=== PATIENT | female | born 1955 | race Caucasian/White ===

== ENCOUNTER 2016-07-18 16:20 | Emergency (ER) | payer BC ==
[2016-07-18 17:02] VITALS: BP 138/67
--- NOTE | 2016-07-18 17:35 | UC ---
Hand/Wrist HPI - HPI Summary HPI Summary: Pt noticed gradual onset of pain, swelling, and redness on R dorsal hand near base of thumb. Was working in the yard, but reports work was light and did not involve repetitive gripping or carrying heavy things. No known PW or insect bite. Today area has grown through the day and now pt feels crackly sensation under the skin when she moves her thumb. - History Of Current Complaint Chief Complaint: UCUpperExtremity Stated Complaint: INFLAMED BUMP ON HAND Time Seen by Provider: 07/18/16 17:08 Hx Obtained From: Patient ?: No Onset/Duration: Gradual Onset, Lasting Hours Severity Initially: Mild Severity Currently: Moderate Character Of Pain: Dull, Aching Aggravating Factor(s): Movement Alleviating: Nothing Associated Signs And Symptoms: Positive: Swelling, Redness Related History: Dominant Hand Right - Allergies/Home Medications Allergies/Adverse Reactions: Allergies Allergy/AdvReac Type Severity Reaction Status Date / Time Penicillins Allergy Rash Verified 06/01/15 13:57 NUTS Allergy Severe Vomiting Uncoded 06/01/15 13:57 PMH/Surg Hx/FS Hx/Imm Hx Endocrine History Of: Denies: Diabetes, Thyroid Disease - partial thyroidectomy Cardiovascular History Of: Denies: Cardiac Disorders, Hypertension, Pacemaker/ICD Respiratory History Of: Denies: COPD, Asthma GI/ History Of: Denies: Ulcer, Renal Disease Neurological History Of: Reports: Migraine - NONE FOR MANY YEARS Psychological History Of: Reports: Anxiety - ON MEDS Cancer History Of: Denies: Breast Cancer - Surgical History Surgical History: Yes Surgery Procedure, Year, and Place: LT femur, benign tumor removed ortho [id number], partial thyroidectomy. RT WRIST 2007 - Family History Known Family History: Positive: Hypertension - Social History Lives: With Family Alcohol Use: Daily Alcohol Amount: 1 DRINK/DAY Substance Use Type: None Smoking Status (MU): Never Smoked Tobacco Type: Cigarettes Have You Smoked in the Last Year: No Review of Systems Constitutional: Negative Skin: Negative Eyes: Negative ENT: Negative Respiratory: Negative Cardiovascular: Negative Gastrointestinal: Negative Genitourinary: Negative Motor: Negative Neurovascular: Negative Musculoskeletal: Arthralgia, Decreased ROM, Edema Neurological: Negative Psychological: Negative All Other Systems Reviewed And Are Negative: Yes Physical Exam Triage Information Reviewed: Yes Appearance: Well-Appearing, No Pain Distress, Well-Nourished Vital Signs: Initial Vital Signs Temp 97.6 F 07/18/16 16:58 Pulse 81 07/18/16 16:58 Resp 18 07/18/16 16:58 BP 138/67 07/18/16 16:58 Pulse Ox 98 07/18/16 16:58 Vital Signs Reviewed: Yes Eye Exam: Normal Eyes: Positive: Conjunctiva Clear ENT Exam: Normal ENT: Positive: Normal ENT inspection, Hearing grossly normal, Pharynx normal, TMs normal Dental Exam: Normal Neck exam: Normal Neck: Positive: Supple, Nontender, No Lymphadenopathy Respiratory Exam: Normal Respiratory: Positive: Chest non-tender, Lungs clear, Normal breath sounds, No respiratory distress, No accessory muscle use Cardiovascular Exam: Normal Cardiovascular: Positive: RRR, No Murmur Musculoskeletal Exam: Other - non-smooth tendon movement over thumb tendon felt on R radial wrist, full ROM Musculoskeletal: Positive: Strength Intact, ROM Intact Neurological Exam: Normal Psychological Exam: Normal Skin Exam: Other - erythema, swelling over R dorsal hand/wrist approx 8cm x 12cm Hand/Wrist Course/Dx - Differential Dx/Diagnosis Provider Diagnoses: R hand tendinitis. R hand cellulitis Discharge - Discharge Plan Condition: Stable Disposition: HOME Prescriptions: DOXYcycline CAP(*) [DOXYcycline 100MG CAP(*)] 100 mg PO BID #14 cap Naproxen Sodium 500 mg PO BID #20 tab Patient Education Materials: Cellulitis (ED), Tendinitis (ED) Referrals: Rajesh Saez MD [Primary Care Provider] - Additional Instructions: Apply warmth and elevate the hand frequently over the next 24 hours, avoiding painful activities. If you have clear worsening in the next 24 hours, or if you have severe symptoms at any time, please go to the emergency department for re- evaluation. Otherwise, see your primary care provider on or Monday for a recheck.
== END 2016-07-18 17:25 | disposition home or self-care (01) ==
LOC: UCEAST 16:20
DX: M77.9 Enthesopathy, unspecified (principal); L03.113 Cellulitis of right upper limb; Z88.0 Allergy status to penicillin
CPT/HCPCS: 99212; G0463

== ENCOUNTER 2016-10-20 14:17 | Emergency (ER) | payer BC ==
[2016-10-20 16:30] VITALS: BP 119/74
== END 2016-10-20 17:02 | disposition left against medical advice (07) ==
LOC: UCEAST 14:17
DX: T14.8 Other injury of unspecified body region (principal); W57.XXXA Bitten or stung by nonvenomous insect and other nonvenomous arthropods, initial encounter; Y93.9 Activity, unspecified; Y92.9 Unspecified place or not applicable; Z53.21 Procedure and treatment not carried out due to patient leaving prior to being seen by health care provider

== ENCOUNTER 2018-05-24 09:18 | Inpatient (IN) | payer BC ==
--- NOTE | 2018-05-11 17:53 | HP ---
AMENDED REPORT NOW INCLUDES COSIGNER DESIGNATION HISTORY AND PHYSICAL: DATE OF ADMISSION/SURGERY: 05/24/18 DATE OF OFFICE VISIT: 05/11/18 SURGEON: Adeline Vance MD * (DICTATED BY BARBARA COHN) PROCEDURE: Right total hip arthroplasty. CHIEF COMPLAINT: Right hip pain. HISTORY OF PRESENT ILLNESS: Ms. Nguyen is a 62-year-old female with continued complaints of right hip pain and she has failed conservative treatment and elected to proceed with a right total hip arthroplasty. PAST MEDICAL HISTORY: Depression and GERD. PAST SURGICAL HISTORY: 1. Partial thyroidectomy. 2. 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 3. Right wrist surgery. CURRENT MEDICATIONS: 1. Omeprazole 40 mg daily. 2. Zoloft 100 mg daily. 3. Multivitamin. 4. Calcium. 5. Ibuprofen 600 mg as needed. 6. Xanax 0.25 mg 3 times a day as needed. ALLERGIES: PENICILLIN causing a rash and ALL NUTS. FAMILY HISTORY: Blood clots. SOCIAL HISTORY: She is a 62-year-old female. She lives alone. She does not smoke or use drugs. She uses occasional alcohol. REVIEW OF SYSTEMS: A complete 14-point review of systems was reviewed with the patient. It was positive for GERD. She denies history of DVT, PE, hepatitis, HIV, or anesthesia problems. PHYSICAL EXAMINATION GENERAL: She is well developed, well nourished, in no acute distress. VITAL SIGNS: She stands 64 inches tall. She weighs 136 pounds. Her blood pressure is 118/72, her heart rate is 90. HEENT: Normocephalic, atraumatic. NECK: Supple. No palpable lymph nodes. PULMONARY: The lungs are clear to auscultation bilaterally. CARDIO: Regular rate and rhythm. Strong S1, S2. ABDOMEN: Soft, nontender, nondistended. NEUROLOGICAL: She is alert and oriented x3. MUSCULOSKELETAL: Right lower extremity, the skin is intact. There are no open wounds or abrasions. She walks with an antalgic type gait favoring her right hip. She has decreased internal and external rotation of the right hip. She has 2+ dorsalis pedis pulse, intact sensation, and her lower extremity muscle group strengths are intact at 5/5. ASSESSMENT AND PLAN: Ms. Nguyen is a 62-year-old female with end-stage osteoarthritis of the right hip. She has failed conservative treatment and elected to proceed with a right total hip arthroplasty. The surgery is scheduled for 05/24/[address] Vance discussed the risks and the benefits of the surgery at today's visit and all of her questions were answered. She will follow up with Dr. Vance in 2 weeks after the surgery. BARBARA COHN [id number]/[facility] #: [id number] MTDFlorentino
[~2018-05-24 09:18] MED LIST: Buffered Lidocaine 0.9% SYRIN* 5 ML/SYR SYRINGE INTRADERM ONE; Bupivacaine-MPF SPINAL* 7.5 MG/ML - 2ML AMP ONE; Dexamethasone IV* 4 MG/ML 1 ML (4 MG) IV SLOW PU ONE; Famotidine IV* 10 MG/ML 2 ML (20 mg) IV ONE; Lidocaine 2% PF * 5 ML VIAL ONE; Midazolam* 1 MG/ML 2 ML VIAL (2 MG) ONE; Propofol* 10 MG/ML 20 ML BTL ONE; fentaNYL* 50 MCG/ML 2 ML VIAL (100 MCG VIAL) ONE
--- OUTSIDE RECORDS SUMMARY | 2018-05-24 09:22 | XMS REPORT | Continuity of Care Document ---
:1955 External Reference #:[id number] Author Name Jose Antonio Stahl Care Team Providers Name Role Phone Rajesh Saez MD Primary Care Physician Unavailable Payers Type Date Identification Numbers Payment Provider Subscriber Effective: 2013 Policy Number: [id number] [employer] Rosenda Nguyen PayID: [id number] [address] [address] [place] [address] Effective: 2010 Policy Number: [id number] BS Of MORENITA Alaniz Expires: 2013 PayID: [id number] [address] [address] [place] [address] Advance Directives Description No Information Available Problems Date Description Provider Status Onset: 07/31/2015 Localized, primary osteoarthritis of the Adeline Vance M.D. Active pelvic region and thigh Onset: 11/03/2017 Trochanteric bursitis Adeline Vance M.D. Active Onset: 11/03/2017 Localized, primary osteoarthritis Adeline Vance M.D. Active Family History Date Family Member(s) Problem(s) Comments General No Current Problems Social History Type Date Description Comments Sex Unknown Lives With spouse Occupation [employer] Tobacco Use Start: Unknown End: Patient is a former 3 years, 1 ppd quit Unknown smoker as a teen Smoking Status Reviewed: 05/11/18 Patient is a former 3 years, 1 ppd quit smoker as a teen Exercise Type/Frequency Exercises regularly Allergies, Adverse Reactions, Alerts Date Description Reaction Status Severity Comments 03/04/2014 Penicillins Active 03/12/2018 [place] Nuts Active vomiting 03/12/2018 [place] Allergenic Extract Active vomiting 03/12/2018 Cashew Oil Active vomiting 04/04/2018 Tree Nuts Active Medications Medication Date Status Form Strength Qnty SIG Indications Ordering Provider Omeprazole Active Capsules DR 40mg 90caps 1 by Unknown 000 mouth every day Zoloft Active Tablets 100mg 1 by Unknown 000 mouth every day Multi Active Unknown Complete 000 Calcium 600 Active Unknown 000 Ibuprofen Active Tablets 600mg 90tabs 1 by Unknown 000 mouth three times a day as needed Xanax Active Tablets 0.25mg one by Unknown 000 mouth up to three times daily as needed for anxiety Meloxicam Hx Tablets 7.5mg 40tabs take 1 M25.551 Adeline 016 - tab by Rajiv shruthi Shukla 018 qdaily with food Naproxen Hx Tablets 500mg 1 tablet Unknown 000 - with food by mouth 018 twice a day Medications Administered in Office Medication Date Status Form Strength Qnty SIG Indications Ordering Provider Depomedrol Administered Injection Adeline 40MG 018 V[facility] Vance Depomedrol Administered Injection Sameer F 40MG 018 MD Ting Depomedrol Administered Injection Adeline 40MG 018 [facility] Vance Depomedrol Administered Injection Adeline 40MG 016 [facility] Vance Celestone 3 mg Administered Injection Amanda and 3mg 014 Darline harp M.D. Immunizations Description No Information Available Vital Signs Date Vital Result Comment 05/11/2018 9:43am Height 64 inches 5'4" Weight 136.00 lb Heart Rate 90 /min BP Systolic 118 mmHg BP Diastolic 72 mmHg Respiratory Rate 17 /min Body Temperature 98.0 F Pain Level 8 BMI (Body Mass Index) 23.3 kg/m2 04/04/2018 10:02am Height 64 inches 5'4" Heart Rate 60 /min BP Systolic 116 mmHg BP Diastolic 64 mmHg Body Temperature 97.7 F Pain Level 3 03/16/2018 3:51pm Height 64 inches 5'4" Weight 132.00 lb BP Systolic 122 mmHg BP Diastolic 74 mmHg Body Temperature 97.8 F BMI (Body Mass Index) 22.7 kg/m2 03/12/2018 11:14am Height 64 inches 5'4" Heart Rate 80 /min BP Systolic Sitting 120 mmHg BP Diastolic Sitting 70 mmHg Respiratory Rate 16 /min Body Temperature 97.6 F Pain Level 5 03/06/2018 2:04pm Height 64 inches 5'4" Weight 132.00 lb Heart Rate 96 /min Body Temperature 98.2 F Pain Level 9 BMI (Body Mass Index) 22.7 kg/m2 11/03/2017 8:32am Height 64 inches 5'4" Weight 145.00 lb BP Systolic 124 mmHg BP Diastolic 80 mmHg Respiratory Rate 20 /min Pain Level 2 BMI (Body Mass Index) 24.9 kg/m2 07/26/2016 3:39pm Height 64 inches 5'4" Weight 138.00 lb Heart Rate 90 /min BP Systolic 120 mmHg BP Diastolic 94 mmHg Pain Level 3 BMI (Body Mass Index) 23.7 kg/m2 10/14/2015 11:21am Height 64 inches 5'4" Weight 145.00 lb Pain Level 6 occsasional BMI (Body Mass Index) 24.9 kg/m2 07/31/2015 9:47am Height 64 inches 5'4" Weight 145.00 lb Heart Rate 91 /min BP Systolic 115 mmHg BP Diastolic 70 mmHg BMI (Body Mass Index) 24.9 kg/m2 05/07/2014 10:17am Height 64 inches 5'4" Weight 145.00 lb Pain Level 8 BMI (Body Mass Index) 24.9 kg/m2 03/04/2014 10:02am Height 64 inches 5'4" Weight 145.00 lb Heart Rate 78 /min BP Systolic 112 mmHg BP Diastolic 75 mmHg BMI (Body Mass Index) 24.9 kg/m2 Results Description No Information Available Procedures Date Code Description Status 03/16/2018 Inj/Aspir Major JT Or Bursa W/ US Completed 03/06/2018 Inject/Drain Joint/Bursa Major W/O US Completed 11/03/2017 Injection Single Tendon Origin/Insertion Completed 07/31/2015 Inject/Drain Joint/Bursa Major W/O US Completed 05/07/2014 Inject/Drain Joint/Bursa Intermediate W/O US Completed 05/07/2014 Inject/Drain Joint/Bursa Small W/O US Completed 03/04/2014 83516 Rad Exam; Wrist, Comp, Min 3 Views Completed 01/21/2011 81115 Rad Exam; Hip Unilat Completed 01/21/2011 10472 Rad Exam; Pelvis Completed Encounters Type Date Location Provider Dx Diagnosis Office Visit 04/04/2018 Orthopedic Adeline Vance, M16.11 Unilateral primary 9:45a [facility] osteoarthritis, right hip M70.61 Trochanteric bursitis, right hip M25.551 Pain in right hip Office Visit 03/12/2018 Orthopedic Adeline M16.11 Unilateral primary 10:45a [facility] Vance osteoarthritis, right [facility] hip M25.551 Pain in right hip M70.61 Trochanteric bursitis, right hip Office Visit 03/06/2018 1:30p Orthopedic Sameer Rogers M25.561 Pain in right [facility] Ting knee [facility] Office Visit 11/03/2017 8:15a Orthopedic Adeline Vance, M17.11 Unilateral [facility] primary [facility] osteoarthritis, right knee M16.11 Unilateral primary osteoarthritis, right hip M70.61 Trochanteric bursitis, right hip M25.551 Pain in right hip M25.461 Effusion, right knee M25.561 Pain in right knee Office Visit 07/26/2016 3:15p Orthopedic Irvin Cavazos M79.641 Pain in right [facility] PRIETO hand Office Visit 10/14/2015 10:45a Orthopedic Adeline Vance M25.551 Pain in right [facility] hip M16.11 Unilateral primary osteoarthritis, right hip M70.61 Trochanteric bursitis, right hip Office Visit 07/31/2015 9:30a [facility] Vance M25.551 Pain in right [facility] Shukla hip M16.11 Unilateral primary osteoarthritis, right hip M70.61 Trochanteric bursitis, right hip Office 05/07/2014 Orthopedic Amanda 715.13 Osteoarthrosis Visit 9:30a [facility] Localized Prim [facility] Forearm Office 04/09/2014 Orthopedic Amanda 715.13 Osteoarthrosis Visit 8:45a [facility] Localized Prim [facility] Forearm Office 03/04/2014 Orthopedic Amanda 719.43 Pain Joint Forearm Visit 9:00a [facility] Office 01/21/2011 Orthopedic Trevon Hernandez, 728.89 Muscle Disorders Visit 3:15p [facility] Other [facility] Office 01/28/2010 Orthopedic Trevon Hernandez, 726.32 Epicondylitis Visit 8:15a [facility] Lateral [facility] Plan of Treatment Future Appointment(s):06/06/2018 10:30 am - Adeline Vance M.D. at [facility]05/24/2018 11:30 am - AURA Valles at [facility]05/24/2018 11:30 am - BARBARA Gutierrez at [facility]05/24/2018 11:30 am - Aedline Vance M.D. at [facility]05/11/2018 - Adeline Vance M.D.M16.11 Unilateral primary osteoarthritis, right hipFollow up:Follow up: 2 weeks after epxyzysV75.551 Pain in right hip
[2018-05-24] MEDS ORDERED: Dexamethasone IV* 4 MG/ML 1 ML (4 MG) ONE (09:44)
[2018-05-24] MEDS ORDERED: Clindamycin 900 MG/D5W BAG(*) 900 MG/50 ML BAG IVPB ONE (09:44)
[2018-05-24] MEDS ORDERED: Famotidine IV* 10 MG/ML 2 ML (20 mg) ONE (09:44)
[2018-05-24] MEDS ORDERED: EPHEDrine (Pressors)* 50 MG/ML VIAL ONE (12:19)
[2018-05-24] MEDS ORDERED: oxyCODONE TAB* 5 MG TAB PO PRN (12:21)
[2018-05-24] MEDS ORDERED: Acetaminophen IV 1GM/100ML * 1,000 MG/100 ML VIAL IVPB ONE (12:21)
[2018-05-24] MEDS ORDERED: Naloxone* 0.4 MG/ML 1 ML VIAL IV PRN (12:21)
[2018-05-24] MEDS ORDERED: Ondansetron INJ* 2 MG/ML VIAL IV PRN (12:21)
[2018-05-24] MEDS ORDERED: Ketorolac INJ* 30 MG/ML 1 ML VIAL IV PRN (12:21)
[2018-05-24] MEDS ORDERED: Propofol* 10 MG/ML 20 ML BTL ONE (12:44)
[2018-05-24] MEDS ORDERED: Ondansetron TAB* 4 MG PO PRN (13:42)
[2018-05-24] MEDS ORDERED: Bisacodyl SUPP* 10 MG SUPP PR PRN (13:42)
[2018-05-24] MEDS ORDERED: Morphine VIAL* 4 MG/ML VIAL (1 ml vial) IV PRN (13:42)
[2018-05-24] MEDS ORDERED: diPHENhydraMINE IV* 50 MG/ML 1 ml VIAL (BENADRYL) IV PRN (13:42)
[2018-05-24] MEDS ORDERED: traMADol TAB* 50 MG PO PRN (13:42)
[2018-05-24] MEDS ORDERED: Polyethylene Glycol 3350* 17 GM PACKET PO PRN (13:42)
[2018-05-24] MEDS ORDERED: Cyclobenzaprine TAB* 10 MG PO PRN (13:42)
[2018-05-24] MEDS ORDERED: oxyCODONE/Acetamin 5/325 MG* TAB PO PRN (13:42)
[2018-05-24] MEDS ORDERED: Magnesium Hydroxide LIQ* 30 ML UDC PO PRN (13:42)
[2018-05-24] MEDS ORDERED: ALPRAZolam TAB* 0.25 MG PO PRN (13:47)
[2018-05-24] MEDS ORDERED: fentaNYL* 50 MCG/ML 2 ML VIAL (100 MCG VIAL) ONE ×2 (14:36→15:38)
[2018-05-24] MEDS ORDERED: oxyCODONE SR TAB(*) 10 MG TAB.SR ONE (14:36)
[2018-05-24] MEDS ORDERED: Ondansetron INJ* 2 MG/ML VIAL ONE (14:37)
[2018-05-24] MEDS: fentaNYL* 50 MCG/ML 2 ML VIAL (100 MCG VIAL) IV PRN ×3 (14:40→15:40)
[2018-05-24] MEDS ORDERED: Morphine VIAL* 4 MG/ML VIAL (1 ml vial) ONE ×2 (14:45→15:16)
[2018-05-24] MEDS: Morphine VIAL* 4 MG/ML VIAL (1 ml vial) IV PRN ×2 (15:17→15:27)
[2018-05-24] MEDS ORDERED: Ketorolac INJ* 30 MG/ML 1 ML VIAL ONE (15:24)
[2018-05-24] MEDS ORDERED: Warfarin TAB(*) 6 MG PO ONE (17:00)
[2018-05-24] MEDS: oxyCODONE/Acetamin 5/325 MG* TAB PO PRN (19:47)
[2018-05-24] MEDS: Docusate CAP* 100 MG PO SCH (19:48)
[2018-05-24] MEDS: Magnesium Hydroxide LIQ* 30 ML UDC PO SCH (19:49)
[2018-05-24] MEDS: Clindamycin 600 MG IVPREMIX(* 600 MG/50 ML SDV IV SCH (19:52)
[2018-05-24] MEDS: Acetaminophen TAB* 325 MG PO SCH (22:17)
[2018-05-24] MEDS: oxyCODONE TAB* 5 MG TAB PO PRN (22:18)
[2018-05-25] MEDS: oxyCODONE/Acetamin 5/325 MG* TAB PO PRN ×5 (00:07→22:48)
[2018-05-25] MEDS: Clindamycin 600 MG IVPREMIX(* 600 MG/50 ML SDV IV SCH ×2 (04:05→11:37)
[2018-05-25 04:54] LABS: Hematocrit 29 % (35-47); Hemoglobin 9.7 g/dl (12.0-16.0); Mean Platelet Volume 7.2 fL (7.4-10.4); Platelet Count 231 10^3/ul (150-450)
[2018-05-25 05:05] LABS: INR 0.9 (0.77-1.02)
[2018-05-25 05:10] LABS: EGFR Non-African American 93.7 (>60)
[2018-05-25] MEDS: Acetaminophen TAB* 325 MG PO SCH ×3 (06:10→22:32)
[2018-05-25] MEDS: oxyCODONE TAB* 5 MG TAB PO PRN ×2 (07:28→18:41)
[2018-05-25] MEDS: Docusate CAP* 100 MG PO SCH ×2 (07:28→22:48)
[2018-05-25] MEDS: Omeprazole CAP* 20 MG PO SCH (07:28)
[2018-05-25] MEDS: Magnesium Hydroxide LIQ* 30 ML UDC PO SCH ×2 (07:28→22:48)
[2018-05-25] MEDS: Sertraline* 100 MG TAB PO SCH (07:28)
--- NOTE | 2018-05-25 09:46 | PN ---
Progress Note - Progress Note Date of Service: 05/25/18 SOAP: Subjective: []Patient seen OOB in chair. Feels she is doing well. BP's running a little soft but she has been asymptomatic. Objective: [] Vital Signs Temp 97.2 F 05/25/18 07:12 Pulse 82 05/25/18 07:12 Resp 16 05/25/18 07:36 BP 90/60 05/25/18 07:14 Pulse Ox 100 05/25/18 07:12 Intake & Output 05/24/18 05/25/18 05/25/18 18:59 06:59 18:59 Intake Total 1500 1120 Output Total 1550 Balance 1500 -430 Weight 135 lb 3.2 oz Intake: IV Fluids 1500 1000 ABX - CLINDAMYCIN 50 LR 950 Lactated Ringers 1500 Oral 120 Output: Lopez 1550 Laboratory Results - last 24 hr 05/25/18 05/25/18 05/25/18 04:32 04:32 04:32 Hgb 9.7 L Hct 29 L Plt Count 231 MPV 7.2 L INR (Anticoag Therapy) 0.90 Sodium 137 Potassium 3.5 Chloride 104 Carbon Dioxide 31 Anion Gap 2 BUN 13 Creatinine 0.64 Est GFR ( Amer) 113.4 Est GFR (Non-Af Amer) 93.7 BUN/Creatinine Ratio 20.3 H Glucose 138 H Calcium 7.8 L Right hip dressing is dry and intact calf soft and non tender +DF/PF right ankle 2+ pedal pulse sensation intact Assessment: []s/p right total hip arthroplasty POD #1 Plan: []PT/OT WBAT RLE Coumadin discontinued, on Eliquis BID Discharge home tomorrow Follow up 10-14 days as scheduled with Dr. Vance
[2018-05-25] MEDS ORDERED: Enoxaparin(*) 40 MG/0.4 ML SYR SUBCUT SCH (12:00)
--- NOTE | 2018-05-25 15:28 | OP ---
OPERATIVE REPORT: DATE OF OPERATION: 05/24/18. DATE OF : 53. ATTENDING SURGEON: Adeline Vance MD. TALENT ACQUISITION COORDINATOR: BARBARA Ozuna. Ms. Perkins did help throughout the procedure with preparation of the leg, wound retraction, manipul ation of the hip, and wound closure. ANESTHESIOLOGIST: Dr. Chester. ANESTHESIA: Spinal. PRE-OP DIAGNOSIS: Severe endstage degenerative osteoarthritis of the right hip joint. POST-OP DIAGNOSIS: Severe endstage degenerative osteoarthritis of the right hip joint, developmental hip dysplasia. OPERATIVE PROCEDURE: Right total hip arthroplasty. COMPLICATIONS: None. ESTIMATED BLOOD LOSS: 200 mL. SPECIMEN: Femoral head and acetabular reamings sent to Pathology. HARDWARE USED: This is uncemented [employer] total hip arthroplasty hardware. For the cup, a Tritanium hemispherical cluster hole shell 50D, a single 20-mm cancellous bone screw was used. For the liner, an MDM cementless liner 38D. For the stem, an Accolade II, size 3 with a 127-degree neck. For the head, a 22.2 +0 LFIT V40 femoral head, and for the liner insert an MDM X3 insert, 22.2/38D. BRIEF HISTORY/INDICATIONS: Ms. Nguyen is a 62-year-old female with years of increasingly severe right hip pain. She failed conservative treatment with antiinflammatories, pain medication, intraarticular injections, and physical therapy. Radiographs showed advanced arthritis and developmental dysplasia . Due to continued pain and decreased quality of life, she elected to undergo right total hip arthro plasty. Informed consent was obtained from the patient. She understood the risks of surgery include d, but were not limited to, bleeding, infection, damage to nearby structures, continued pain, need fo r further surgery, intraoperative fracture, nerve palsy, hardware failure or loosening, dislocation, leg length discrepancy, stroke, heart attack, blood clot, and . She wished to proceed. INTRAOPERATIVE FINDINGS: Intraoperatively, the patient was noted to have a advanced severe arthritis with complete loss of cartilage in the femoral head and acetabulum. She had extensive osteophyte fo rmation along the anterior and superior acetabulum. The acetabulum was noted to be significantly sha llow and dysplastic. There was minimal posterior wall. DESCRIPTION OF PROCEDURE: Ms. Nguyen was identified in the preanesthesia unit. Her right lower extrem ity was marked as the correct operative side. Informed consent was signed and placed in the chart. The patient was taken to the operating room and placed under spinal anesthesia. A Lopez catheter was placed. The patient was placed in the left lateral decubitus position on the peg board. All bony p rominences were well padded. Right lower extremity was prepped and draped in the usual sterile fashi on. Preop time-out was made to correctly identify the patient side and site. Appropriate perioperat jluis antibiotics were given within 1 hour of incision. A 10-cm posterior hip incision was made and carried down to the lateral fascial layer. Lateral facia l layer was incised in line with the skin incision. Charnley retractor was placed. The piriformis a nd conjoint tendons were identified and elevated with electrocautery. These were tagged with #5 Ethi whyte. Next, electrocautery was used to make a standard posterolateral capsular flap. This was also tagged with #5 Ethibond. The hip was carefully dislocated. Lesser troch to the center of the femoral head measured 51 mm. Os cillating saw was used to make the appropriate femoral neck cut. Femoral head was removed. The femur was retracted anteriorly. After appropriate placement of retractors, the acetabulum was well visual ized. The acetabulum was noted to be dysplastic and shallow with significant osteophyte formation mcclure perior and anteriorly. Long-handled knife was used to sharply remove any remaining labrum. The acet abulum was sequentially reamed up to a size 49. The 49 reamer had bleeding subchondral bone bed. A 49 trial had excellent fit. The final implant chosen was a 50D Tritanium cluster hole shell. This was impacted into the acetabulum without difficulty. There was appropriate anteversion and abduction angle with good stability. A single 20 mm screw was placed in the superior and posterior quadrant f or extra stability. Liner chosen was an MDM cementless liner, 38D. This was impacted into the acetabulum without difficu lty. Some anterior osteophytes were carefully removed using a rongeur and osteotome. Attention was next turned to preparation of the femoral canal. A canal finder was used to enter the proximal femur. The proximal femur was sequentially broached up to a size 3. Size 3 broach had exce llent stability with appropriate anteversion. A 127 neck trial and the appropriate +0 head trial was chosen. Lesser troch to the center of the femoral head measured 52 mm. The hip was reduced and take n through a range of motion. The hip was stable in all positions. There was good soft tissue tensio n and appropriate leg lengths. The hip was carefully dislocated. All trials were removed. Final implant chosen was an Accolade II size 3 with a 127-degree neck. This was impacted into the fe moral canal without difficulty. There was excellent stability and appropriate anteversion. A 22.2 + 0 femoral head was prepared with the 22.2/38D MDM X3 insert. This was impacted on to the femoral nec k. Lesser troch to the center of the femoral head final measurement was 51 mm. The hip was reduced and taken through a range of motion. The hip was stable in all positions. There was good soft tissu e tension and appropriate leg lengths. The hip was copiously irrigated with sterile saline. Previously tagged tendons and capsule were reapproximated to the posterolateral femur through 2 troch anteric drill holes. The lateral fascial layer was closed using interrupted #1 Vicryls. The rest of the incision was closed in a layered fashion using 0 and 2-0 Vicryls. The wound was copiously irrig ated with sterile saline. Skin was closed using 3-0 Monocryl and Dermabond. Sterile Adaptic, 4x4s, and paper tape were used to cover the incision. The patients's anesthesia was reversed without difficulty. She was taken to the PACU in stable condi tion. Intended weightbearing will be weightbearing as tolerated. Intended DVT prophylaxis will be Shruti rocha with a Lovenox bridge. [id number]/[facility] #: [id number]
[2018-05-26] MEDS: oxyCODONE/Acetamin 5/325 MG* TAB PO PRN ×3 (03:34→11:56)
[2018-05-26] MEDS: Acetaminophen TAB* 325 MG PO SCH ×2 (05:52→14:17)
[2018-05-26 06:11] LABS: Hematocrit 28 % (35-47); Hemoglobin 9.4 g/dl (12.0-16.0); Platelet Count 211 10^3/ul (150-450)
[2018-05-26 06:16] LABS: INR 0.95 (0.77-1.02)
[2018-05-26] MEDS: Omeprazole CAP* 20 MG PO SCH (08:06)
[2018-05-26] MEDS: Magnesium Hydroxide LIQ* 30 ML UDC PO SCH (08:06)
[2018-05-26] MEDS: Sertraline* 100 MG TAB PO SCH (08:06)
[2018-05-26] MEDS: Docusate CAP* 100 MG PO SCH (08:06)
--- NOTE | 2018-05-26 10:10 | PN ---
Progress Note - Progress Note Date of Service: 05/26/18 SOAP: Subjective: Pt is doing well. Pain controlled. Doing well with PT. Denies CP/SOB, F/C or calf pain Objective: PE-62 y/o WDWN F NAD A&Ox3 RLE- dressing changed inc c/d/i, no signs of infection, +DF/PF ankle, calf soft NT, SILT distally, +2 DP pulse Vital Signs Temp Pulse Resp BP Pulse Ox 98.1 F 95 16 116/62 94 05/26/18 07:36 05/26/18 07:36 05/26/18 08:07 05/26/18 07:36 05/26/18 07:36 Laboratory Results - last 24 hr 05/26/18 05/26/18 05:41 05:41 Hgb 9.4 L Hct 28 L Plt Count 211 MPV 7.0 L INR (Anticoag Therapy) 0.95 Assessment: []s/p right total hip arthroplasty POD #2 Plan: []Cont PT/OT WBAT RLE Eliquis BID for DVT prophylaxis Percocet and flexaril for pain colace for constipation Discharge home with [facility] today Follow up 10-14 days as scheduled with Dr. Vance
[2018-05-26] MEDS ORDERED: Apixaban* 2.5 MG TAB PO SCH (11:00)
[2018-05-26 12:40] VITALS: BP 108/64
--- NOTE | 2018-05-26 21:12 | DS ---
AMENDED REPORT NOW INCLUDES DESIGNATED COSIGNER DISCHARGE SUMMARY: DATE OF ADMISSION: 05/24/18 DATE OF DISCHARGE: 05/26/18 PROVIDER: Dr. Adeline Vance.* (DICTATED BY BARBARA CRUZ) ADMITTING DIAGNOSIS: Status post right total hip arthroplasty for severe right hip osteoarthritis. SECONDARY DIAGNOSIS: Depression and gastroesophageal reflux disease. CONSULTATIONS: Physical Therapy/Occupational Therapy. HISTORY OF PRESENT ILLNESS: Ms. Nguyen is a 62-year-old female, who presented to the clinic with right hip pain due to severe osteoarthritis. She failed conservative treatment, therefore she agreed to undergo a right total hip arthroplasty with Dr. Vance, on 05/24/18. HOSPITAL COURSE: She was admitted to [facility], on 05/24/18. She underwent a right total hip arthroplasty. Postoperatively, she recovered in the short-stay surgical unit. Postop day #1, the Lopez was removed. She was able to urinate on her own. She was advanced to regular diet without difficultly and her pain was controlled with oral Percocet. She was restarted on home medications. Labs and vitals remained stable. She was able to weight bear as tolerated on the right lower extremity. She advanced appropriately with physical therapy and occupational therapy. DVT prophylaxis was managed with Eliquis. By postop day 2, she was orthopedically and medically stable for discharge to home with VNS services. PHYSICAL EXAMINATION: General: A 62-year-old well-developed, well-nourished female, in no acute distress. Alert and oriented x3. Appropriate mood and affect. Right lower extremity: The dressing was changed. The incision is clean , dry, and intact with no signs of infection. She is able to dorsiflex, plantar flex her ankle. Calves soft, nontender. +2 DP pulse. Sensation intact to light touch distally. DISCHARGE CONDITION: Stable. DISCHARGE MEDICATIONS: Home medications on discharge continued to include: 1. Multivitamin 1 cap by mouth daily. 2. Zoloft 100 mg 1 by mouth in the morning. 3. Ibuprofen 400 mg by mouth every 6 hours, she understands not to take this with Eliquis. 4. Pyww-nup-oydjnmy allergy med 1 by mouth daily. 5. Estrace 1 application once a week. 6. Alprazolam 0.25 mg by mouth daily. 7. Prilosec 20 mg 2 tabs by mouth in the morning. 8. Vitamin D and calcium 1 tab by mouth daily. 9. Airborne lozenges 1 lozenge a day as needed. New medications on discharge to include: 1. Eliquis 2.5 mg by mouth twice a day for 30 days. 2. Cyclobenzaprine 10 mg by mouth 3 times a day for pain with Percocet 5/325, 1 to 2 every 4 to 6 hours as needed for pain. 3. Docusate 100 mg 1 by mouth twice a day for constipation. DISCHARGE INSTRUCTIONS: The patient is weight bearing as tolerated. She should continue posterior hip precautions and should not cross her legs or bend greater than 90 degrees. It is okay for her to shower postop day 3. No swimming, bathing, or submerging in water. She should use gentle soap and pat dry. Cover with a gauze, ALEX wrap, and tape. She should call the orthopedic office with increased drainage, redness, increased pain or fever and go to the ER with chest pain or shortness of breath. She is on a regular diet. Increase fluids and fiber to prevent constipation. She should continue to use stool softeners if she has no bowel movement the next day. She can use over-the- counter suppository. If no bowel movement after that, she should call the office. She will continue physical therapy and occupational therapy as shown. Visiting home nurses to do wound checks. Eliquis 2.5 by mouth twice a day x30 days for DVT prophylaxis. She should not take ibuprofen, naproxen or aspirin while on Eliquis. Pain control with Percocet 5/325, 1 to 2 every 4 to 6 hours, maximum 10 a day, no more than 4000 mg Tylenol from all sources daily. She should take Colace 1 tab 3 times a day as needed for constipation, and cyclobenzaprine 10 mg 1 by mouth 3 times a day as needed for muscle spasms or pain. She will require antibiotics prior to any dental work in the future. She will follow up with Dr. Vance in 10 to 14 days. She should call for an appointment. She should call the office with any questions or concerns. Her medications were sent to [id number]. BARBARA CRUZ [id number]/[facility] #: [id number] FABIAN
== END 2018-05-26 14:20 | disposition home health service (06) | DRG 301 ==
LOC: AA 09:18 → SSU 13:42
PROVIDERS: ADMIT Orthopaedic Surgery Adult Reconstructive Orthopaedic Surgery; ATTEND Orthopaedic Surgery Adult Reconstructive Orthopaedic Surgery
PROC: 0SR901A Replacement of Right Hip Joint with Metal Synthetic Substitute, Uncemented, Open Approach (ICD-10-PCS; principal; 2018-05-24 11:00)
DX: M16.11 Unilateral primary osteoarthritis, right hip (principal); F32.9 Major depressive disorder, single episode, unspecified; K21.9 Gastro-esophageal reflux disease without esophagitis; K59.00 Constipation, unspecified; F41.9 Anxiety disorder, unspecified; M24.851 Other specific joint derangements of right hip, not elsewhere classified; M25.751 Osteophyte, right hip; Z88.0 Allergy status to penicillin; Z91.018 Allergy to other foods; Z83.2 Family history of diseases of the blood and blood-forming organs and certain disorders involving the immune mechanism; Z72.89 Other problems related to lifestyle; Z87.891 Personal history of nicotine dependence; Q65.89 Other specified congenital deformities of hip
CPT/HCPCS: 36415; 80048; 85014; 85018; 85049; 85610; A9270-GY; C1713; C1776; J1100; J1650; J1885; J2250; J2270; J2405; J2704; J3010